=== PATIENT | female | born 1970 | race Caucasian/White ===

== ENCOUNTER → 2022-04-12 12:25 | Outpatient (BNVA) | payer OTHER, SELFPAY | PROVIDERS: PCP Internal Medicine; Visit Provider Internal Medicine | DX: S00.93XA Contusion of unspecified part of head, initial encounter (principal); S16.1XXA Strain of muscle, fascia and tendon at neck level, initial encounter; Y04.2XXA Assault by strike against or bumped into by another person, initial encounter | CPT/HCPCS: 70450; 72040; 99204 ==

== ENCOUNTER → 2022-04-15 10:05 | Outpatient (BNVA) | payer OTHER, SELFPAY | PROVIDERS: PCP Internal Medicine; Visit Provider Internal Medicine | DX: S06.0X0A Concussion without loss of consciousness, initial encounter (principal); S16.1XXA Strain of muscle, fascia and tendon at neck level, initial encounter; Y04.2XXA Assault by strike against or bumped into by another person, initial encounter | CPT/HCPCS: 99214 ==

== ENCOUNTER → 2022-04-30 09:39 | Outpatient (BNVA) | payer OTHER, SELFPAY | PROVIDERS: PCP Internal Medicine; Visit Provider Internal Medicine | DX: S06.9X0A Unspecified intracranial injury without loss of consciousness, initial encounter (principal); Y04.2XXA Assault by strike against or bumped into by another person, initial encounter; F06.70 Mild neurocognitive disorder due to known physiological condition without behavioral disturbance; F51.5 Nightmare disorder; R51.9 Headache, unspecified | CPT/HCPCS: 99213 ==

== ENCOUNTER → 2022-05-13 15:12 | Outpatient (BNVA) | payer OTHER, SELFPAY | PROVIDERS: PCP Internal Medicine; Visit Provider Internal Medicine | DX: S06.0X0D Concussion without loss of consciousness, subsequent encounter (principal); S16.1XXD Strain of muscle, fascia and tendon at neck level, subsequent encounter; Y04.2XXD Assault by strike against or bumped into by another person, subsequent encounter; R51.9 Headache, unspecified | CPT/HCPCS: 99214 ==

== ENCOUNTER → 2022-05-31 14:16 | Outpatient (BNVA) | payer OTHER, SELFPAY | PROVIDERS: PCP Internal Medicine; Visit Provider Internal Medicine | DX: S00.93XD Contusion of unspecified part of head, subsequent encounter (principal); S16.1XXD Strain of muscle, fascia and tendon at neck level, subsequent encounter; Y04.2XXD Assault by strike against or bumped into by another person, subsequent encounter | CPT/HCPCS: 99213 ==

== ENCOUNTER 2022-06-10 18:28 | Outpatient (REF) | payer OTHER, SELFPAY ==
--- NOTE | ~2022-06-10 | MR_ITS ---
EXAMINATION: MR BRAIN WITHOUT CONTRAST CLINICAL INFORMATION: Persistent headache, memory loss, TBI COMPARISON: None TECHNIQUE: Multiplanar multisequence MR imaging of the brain was obtained without intravenous contrast. FINDINGS: There is no acute infarct on diffusion-weighted imaging. There is no intracranial hemorrhage on iron-sensitive imaging. Bilateral globus pallidus mineralization. No extra-axial collection or mass effect/herniation. Normal parenchymal signal characteristics. No hydrocephalus. The ventricles are normal in morphology and size. The major flow voids at the skull base are preserved. The midline structures are normal. The cerebellar tonsils are normally positioned. The craniocervical junction is normal. Marrow signal is within normal limits. The visualized soft tissues are without significant abnormality. No signal abnormality within the paranasal sinuses or within the mastoid air cells. MR/MR head/brain wo con IMPRESSION: Unremarkable noncontrast MRI of the brain.
== END 2022-06-10 18:29 | disposition home or self-care (01) ==
LOC: HO.MRI 18:28
PROVIDERS: Visit Provider Physician Assistant
DX: R51.9 Headache, unspecified (principal); R41.3 Other amnesia
CPT/HCPCS: 70551

== ENCOUNTER → 2022-06-14 14:26 | Outpatient (BNVA) | payer OTHER, SELFPAY | PROVIDERS: PCP Internal Medicine; Visit Provider Internal Medicine | DX: S00.93XD Contusion of unspecified part of head, subsequent encounter (principal); Y04.2XXD Assault by strike against or bumped into by another person, subsequent encounter | CPT/HCPCS: 99213 ==

== ENCOUNTER 2024-04-10 07:19 | Day surgery (SDC) | payer BC, SELFPAY ==
[2024-04-10] VITALS (10 sets, daily range): BP systolic 97–142; BP diastolic 46–116; PULSE 59–82; RESP 14–20; TEMP 36.3–37.2; O2SAT 93–98; BMI 28.5
--- NOTE | ~2024-04-10 | CT_ITS ---
EXAMINATION: CT ABDOMEN AND PELVIS WITHOUT CONTRAST CLINICAL INFORMATION: Right flank pain. COMPARISON: None available. TECHNIQUE: Multidetector volumetric imaging was performed from the superior aspect of the liver through the pubic symphysis. Sagittal and coronal reformatted images were obtained on the technologist's workstation. This CT examination was performed using dose optimization techniques as appropriate, variously including the following: *Automated exposure control *Adjustment of mA and/or kV according to patient size (this includes techniques or standardized protocols for targeted exams where dose is matched to indication/reason for exam; i.e. extremities or head) *Use of iterative reconstruction technique. DLP: 536 mGy centimeter. FINDINGS: Inadequate evaluation of the intra-abdominal organs and vascular structures due to to lack of IV contrast. LUNG BASES: There are a few 2 mm noncalcified pulmonary nodule in the periphery of the right lower lung lobe. LIVER, GALLBLADDER, AND BILIARY TREE: Liver measures 17 cm.. No intrahepatic biliary ductal dilatation. There is a focal 2 cm low density in the gallbladder fossa. Status post cholecystectomy. Common bile duct measures 4 mm. PANCREAS: Punctate calcification in the head of the pancreas just anterior to the common bile duct. No main pancreatic ductal dilatation. No peripancreatic fluid collection. SPLEEN: 9 cm. ADRENAL GLANDS: No nodular lesions. KIDNEYS AND URETERS: Right kidney: There is a 3 mm obstructing calculus in the proximal right ureter.. There is mild to moderate dilatation of the pelvicalyceal system. Left kidney: No hydronephrosis. No nephrolithiasis. BLADDER: Fluid-filled nearly collapsed. GASTROINTESTINAL TRACT: Sutures along the lateral gastric wall. There is a hiatal hernia, small to moderate volume. Appendix is normal. Scattered diverticula in the sigmoid colon. Stool within nondilated large intestine. No intestinal obstruction pattern. No ascites. No pneumatosis intestinalis. No pneumoperitoneum. No fluid collections, peritoneal cavity. ABDOMINAL WALL: There are 2 lobulated small to moderate sized fat-containing umbilical and periumbilical hernias. LYMPH NODES: Nonspecific prominent mesenteric and retroperitoneum. VASCULAR: The calcified plaques distal abdominal aorta. No aneurysm in the abdominal aorta. PELVIC VISCERA: Inadequate evaluation. No gross masses. OSSEOUS STRUCTURES: Multilevel thoracolumbar spondylosis resulting in grade 1 retrolisthesis L4-5 and grade 1 anterolisthesis L5-S1. Castellvi type III sacralization. CT/CT abdomen pelvis wo IV con IMPRESSION: 3 mm obstructing calculus proximal right ureter resulting in [id number] right hydronephrosis. Fleischner guidelines were followed. Electronically signed by: Gage Nava MD 04/10/2024 10:00 AM [facility]
--- NOTE | ~2024-04-10 | FL_ITS ---
EXAMINATION: FLUOROSCOPY GUIDANCE FOR NEEDLE PLACEMENT CLINICAL INFORMATION: CYSTOSCOPY STENT RIGHT . Right UPJ stone. COMPARISON: CT abdomen and pelvis 04/10/2024. TECHNIQUE: Fluoroscopy guidance was provided to referring physician during cystoscopy. FINDINGS/ FL/FL guidance in OR IMPRESSION: There are 2 digital images obtained in the OR both revealing right internal ureteral stent with its proximal end in the kidney pelvis and distal end in the bladder. FLUOROSCOPY TIME: 19.9 seconds DOSE AREA PRODUCT: 4.35 uGy-m2 (microgray-meter squared) Electronically signed by: Augusto Ruff MD 04/11/2024 07:29 AM EST
--- NOTE | 2024-04-10 07:57 | ED.ABDPAIN ---
HPI - Abdominal Pain General Chief Complaint: Abdominal Pain Stated Complaint: R lower abd pain, vomiting Time Seen by Provider: 04/10/24 07:55 Source: patient Mode of arrival: ambulatory Limitations: no limitations History of Present Illness HPI narrative: This is a 54 years old the patient presented to the emergency department complaining of right flank pain radiated to the groin pain he has been going on since Tuesday. She arrived today in triage crying in distress. Denies any nausea vomiting denies any comorbidity MD elicited complaint: flank pain Pertinent past history: none Onset (ago): day(s) (2) Pain Consistency: constant Location: other (rt flank) Severity: severe Quality: aching Radiation: RLQ Migration to: suprapubic Exacerbating factors: nothing Relieving factors: nothing Associated symptoms: denies other symptoms Related Data Patient : No Home Medications ?Medication ?Instructions ?Recorded ?Confirmed clindamycin HCl 300 mg capsule 300 mg PO TID 04/10/24 propranolol 20 mg tablet 20 mg PO DAILY 04/10/24 semaglutide (weight loss) 1 mg/0.5 1 mg subcut Q4W 04/10/24 mL subcutaneous pen injector (Wegovy) Previous Rx's ?Medication ?Instructions ?Recorded trazodone 50 mg tablet 100 mg (2 x 50 mg) PO BEDTIME #60 05/13/22 tabs Allergies Allergy/AdvReac Type Severity Reaction Status Date / Time codeine Allergy Unknown Unknown Verified 04/10/24 07:50 penicillin V Allergy Unknown Unknown Verified 04/10/24 07:50 Penicillins [PENICILLINS] Allergy Unknown HIVES Verified 04/10/24 07:50 HYDROCET Allergy Unknown HIVES Uncoded 10/25/19 16:11 Review of Systems Constitutional: Reports no additional constitutional complaints Respiratory: Reports no additional respiratory complaints Genitourinary: Reports as per HPI PMFSH Past Medical History PMFSH Narrative: She denies any medical problems Surgical History History of right knee surgery History of knee replacement procedure of right knee History of knee surgery History of section Hx of cholecystectomy Family History Family History Father Unknown family medical history Mother No problems noted. Son No problems noted. Daughter No problems noted. Social History Social History Smoked in Last 30 Days: No Use of substances other than those prescribed or required for medical reasons: No Advance Directives: Yes Advance Directives Information Provided: Yes Advance Directives on File: No Patient : No Physical Exam ED Vital Signs: Vital Signs - 24 hr 04/10/24 07:48 04/10/24 10:06 04/10/24 11:52 Temperature 97.8 F Pulse Rate 82 Respiratory Rate 20 16 15 Blood Pressure 142/116 H Pulse Oximetry 97 Oxygen Delivery Method Room Air 04/10/24 12:34 Temperature 97.6 F Pulse Rate 76 Respiratory Rate 16 Blood Pressure 104/46 L Pulse Oximetry 96 Oxygen Delivery Method Room Air BMI result Body Mass Index 28.5 Mild distress crying in pain Const General: well developed and alert Nutritional Appearance: average body habitus Orientation/consciousness: patient oriented x3 Limitations: no limitations HENMT Head: Yes normal to inspection Ears: hearing grossly normal bilaterally Mouth: Normal oral and palatal mucosa present Throat: Yes posterior oropharynx normal Neck Neck: Yes normal visual inspection Chest Chest palpation & inspection: normal inspection of the chest Resp Effort & Inspection: normal respiratory effort Auscultation: clear to auscultation bilaterally Cardio Jugular venous distension: no JVD Rate: regular rate Rhythm: regular rhythm GI Inspection: Yes normal to inspection Palpation (GI): Soft to palpation Auscultation: normal bowel sounds Skin General skin exam: no rashes or lesions noted and elasticity normal Trauma: no lacerations or abrasions Wounds: no wounds Neuro General: patient oriented x3 Cranial nerves: Yes CN's II-XII intact bilaterally Motor exam (neuro): 5/5 motor strength present throughout Course Reevaluation(s) Reevaluation #1: Seen by Dr. Truong in the emergency department patient with have sten in OR Time: 13:18 Medical Decision Making Medical Decision Making [facility] Narrative: Patient presented to the ED complaining of right flank pain radiated to the right groin we will obtain labs UA imaging administer analgesia antiemetic Differential Diagnosis Differential Diagnoses: The differential diagnosis associated with the presentation includes Kidney stone/pyelonephritis/urinary tract infection Admission/Observation Consideration of admission/observation: Escalation of care including admission/observation considered Consult Healthcare Provider Management of the patient was discussed with: Cutting Machine Fixer Acosta Lab Data MDM Lab Attestation statement: I reviewed the patient's lab results. 04/10/24 09:52 04/10/24 09:52 Labs: Lab Results 04/10/24 Range/Units 09:52 WBC 6.9 (4.8-10.8) X10*3/uL RBC 4.07 L (4.20-5.50) X10*6/uL Hgb 12.8 (12.0-16.0) g/dl Hct 38.0 (37.0-47.0) % MCV 93.4 (80.0-98.0) fL MCH 31.4 (27.0-33.0) pg MCHC 33.7 (31.0-35.0) g/dl RDW 13.6 (11.0-16.0) % Plt Count 234 (160-400) X10*3/uL MPV 9.4 (9.4-12.3) fL Immature Gran % (Auto) 0.3 (0.0-0.4) % Neut % (Auto) 75.6 H (45-73) % Lymph % (Auto) 14.5 L (20-40) % [place] % (Auto) 8.6 (2-11) % Eos % (Auto) 0.3 (0-4) % Baso % (Auto) 0.7 (0-2) % Lymph # (Auto) 1.0 L (1.2-4.9) X10*3/uL [place] # (Auto) 0.6 (0.1-1.2) X10*3/uL Eos # (Auto) 0.0 (0.0-0.4) X10*3/uL Baso # (Auto) 0.1 (0.0-0.2) X10*3/uL Abs Immat Gran (auto) 0.02 (0.00-0.03) X10*3/uL Absolute Neuts (auto) 5.2 (2.0-8.3) x10*3/uL Absolute Nucleated RBC 0.000 (0.0-0.012) X10*3/uL Nucleated RBC % (auto) 0.0 (0.0-0.2) /100WBC Sodium 145 (135-145) mmol/L Potassium 3.7 (3.3-5.1) mmol/L Chloride 110 H (96-108) mmol/L Carbon Dioxide 24 (22-29) mmol/L Anion Gap 15 (12-20) BUN 11 (9-16) mg/dL Creatinine 0.72 (0.5-1.4) mg/dL Estim Creat Clear Calc 87.6 Estimated GFR > 60 Random Glucose 81 (60-115) mg/dL Calcium 8.9 (8.4-10.2) mg/dL Total Bilirubin 1.1 H (0.0-1.0) mg/dL AST 37 H (5-31) U/L ALT 23 (0-31) U/L Alkaline Phosphatase 77 (39-117) U/L Total Protein 6.7 (6.5-8.0) g/dL Albumin 3.6 (3.5-5.0) g/dL Urine Color [place] A Urine Appearance Turbid Urine pH 5.0 (5.0-9.0) Ur Specific [place] >= 1.030 H (1.005-1.025) Urine Protein 100 (2+) H (Neg-Trace) mg/dL Urine Glucose (UA) Negative (Negative) mg/dL Urine Ketones Trace (Negative) mg/dL Urine Blood Large (3+) H (Negative) Urine Nitrite Positive H (Negative) Ur Leukocyte Esterase Small (1+) H (Negative) Urine RBC 6-10 H (0-2) /HPF Urine WBC 11-20 H (0-5) /HPF Ur Squamous Epith Cells >20 (0-2) /HPF Calcium Oxalate Crystal Present Urine Bacteria 4+ (None Seen) Hyaline Casts 11-20 (0-2) /LPF Independent Interpretation I performed an independent interpretation of an: CT Scan Radiology Impression Discussion of test interpretation with radiology: I have reviewed the radiologist's reading. Radiologist Impression: ABDOMINAL WALL: There are 2 lobulated small to moderate sized fat-containing umbilical and periumbilical hernias. LYMPH NODES: Nonspecific prominent mesenteric and retroperitoneum. VASCULAR: The calcified plaques distal abdominal aorta. No aneurysm in the abdominal aorta. PELVIC VISCERA: Inadequate evaluation. No gross masses. OSSEOUS STRUCTURES: Multilevel thoracolumbar spondylosis resulting in grade 1 retrolisthesis L4-5 and grade 1 anterolisthesis L5-S1. Castellvi type III sacralization. CT/CT abdomen pelvis wo IV con IMPRESSION: 3 mm obstructing calculus proximal right ureter resulting in [id number] right hydronephrosis. Fleischner guidelines were followed. Electronically signed by: Gage Nava MD 04/10/2024 10:00 AM EST Independent Historian Clinical information obtained from an independent historian. History obtained from or confirmed by: Other (daughter) Medications Administered Generic Name Dose Route Start Last Admin Trade Name Freq PRN Reason Stop Dose Admin Lactated Ringer's 1,000 mls @ 150 mls/hr 04/10/24 13:00 04/10/24 13:11 Lr IVCONT 150 mls/hr .Q6H40M MARIO Administration Discontinued Medications Generic Name Dose Route Start Last Admin Trade Name Freq PRN Reason Stop Dose Admin Hydromorphone HCl 0.5 mg 04/10/24 11:22 04/10/24 11:52 Hydromorphone Hcl 0.5 Mg/0.5 Ml Syringe IVPUSH 04/10/24 11:23 0.5 mg ONCE ONE Administration Protocol Sodium Chloride 1,000 mls @ 999 mls/hr 04/10/24 08:00 04/10/24 09:26 Ns IVCONT 04/10/24 09:00 Infused .Q1H1M MARIO Infusion Sodium Chloride 1,000 mls @ 999 mls/hr 04/10/24 10:15 04/10/24 12:31 Ns IVCONT 04/10/24 11:15 Infused .Q1H1M MARIO Infusion Ketorolac Tromethamine 15 mg 04/10/24 07:55 04/10/24 08:11 Ketorolac Tromethamine 15 Mg/Ml Vial IVPUSH 04/10/24 07:56 15 mg ONCE ONE Administration Morphine Sulfate 4 mg 04/10/24 07:55 04/10/24 08:11 Morphine Sulfate 4 Mg/Ml Cartridge IVPUSH 04/10/24 07:56 4 mg ONCE ONE Administration Protocol Morphine Sulfate 4 mg 04/10/24 09:56 04/10/24 10:06 Morphine Sulfate 4 Mg/Ml Cartridge IVPUSH 04/10/24 09:57 4 mg ONCE ONE Administration Protocol Ondansetron HCl 4 mg 04/10/24 07:55 04/10/24 08:11 Ondansetron Hcl 4 Mg/2 Ml Vial IVPUSH 04/10/24 07:56 4 mg ONCE ONE Administration Discharge Plan Discharge Clinical Impression: Renal colic on right side Patient Disposition: Admitted As Inpatient Print Language: German
[2024-04-10] MEDS: ondansetron HCL 4 MG/2 ML VIAL IVPUSH (08:11)
[2024-04-10] MEDS: Morphine Sulfate 4 MG/ML CARTRIDGE IVPUSH ×2 (08:11→10:06)
[2024-04-10] MEDS: Ketorolac Tromethamine 15 MG/ML VIAL IVPUSH ×2 (08:11→18:54)
[2024-04-10] MEDS: 0.9 % Sodium Chloride 1,000 ML 999 ML IVCONT ×2 (08:11→10:26)
--- OUTSIDE RECORDS SUMMARY | 2024-04-10 08:41 | XMS_ITS | Clinical Summary ---
[facility] Address [address] [place] [address] Care Team Providers Care Reclamation Supervisor Name Role Phone Ericka Can MD Primary Care Provider Surgical History Surgery Date Site/Laterality Comments CHOLECYSTECTOMY PROCEDURE: HISTORICAL CHOLECYSTECTOMY BARIATRIC SURGERY 10/05/2016 PROCEDURE: ND LAPS GSTRC RSTRICTIV PX LONGITUDINAL GASTRECTOMY; COMMENT: Sleeve Gastrectomy OTHER SURGICAL HISTORY 02/22/2015 Right PROCEDURE: ND ARTHRS KNE SURG W/MENISCECTOMY MED/LAT W/SHVG TOTAL KNEE ARTHROPLASTY 08/25/2015 Right PROCEDURE: HISTORICAL TOTAL KNEE REPLACE; COMMENT: [place] SECTION PROCEDURE: HISTORICAL ; COMMENT: x 2 Medical History Medical History Date Comments Anxiety DX:Anxiety History of bariatric surgery 05/20/2015 DX: History of bariatric surgery; COMMENT: 2016 Sleeve Gastrectomy History of DVT (deep vein thrombosis) 02/19/2015 DX:History of DVT (deep vein thrombosis); COMMENT: 2015 R LE s/p menisectomy Social History Tobacco Use Types Packs/Day Years Used Date Smoking Tobacco: Never Smokeless Tobacco: Never Alcohol Use Standard Drinks/Week Comments Yes 0 (1 standard drink = 0.6 oz pur e alcohol) Comments Unknown Sex and Gender Information Value Date Recorded Sex Assigned at Not on file Legal Sex Female 7:34 AM EST Gender Identity Not on file Sexual Orientation Not on file Obstetrics History Plan of Treatment Health Maintenance Due Date Last Done Comments Breast Cancer Screening 1969 Hepatitis B Vaccines (1 of 3 - 19+ 3-dose series) 01/30/1988 Cervical Cancer Screening: P ap Smear 1990 Pneumococcal Vaccine: 50+ Ye ars (1 of 1 - PCV) 2019 Zoster Vaccines (1 of 2) 2019 DTaP,Tdap,and Td Vaccines (2 - Td or Tdap) 07/08/2020 07/08/2010 COVID-19 Vaccine ( - 2023-2 5 season) 2023 Influenza Vaccine (#1) 2023 HIB Vaccines Aged Out No longer eligi ble based on patient's age to complete this topic HPV Vaccines Aged Out No longer eligi ble based on patient's age to complete this topic Hepatitis A Vaccines Aged Out No long er eligible based on patient's age to complete this topic IPV Vaccines Aged Out No longer eligi ble based on patient's age to complete this topic MMR Vaccines Aged Out No longer eligi ble based on patient's age to complete this topic Meningococcal ACWY Vaccine Aged Out N o longer eligible based on patient's age to complete this topic Meningococcal B Vacine Aged Out No lo nger eligible based on patient's age to complete this topic Pneumococcal Vaccine: Pediat rics (0 to 5 Years) and At-Risk Patients (6 to 64 Years) Aged Out No longer eligi ble based on patient's age to complete this topic RSV Immunization Patients Un corinne 20 months Aged Out No longer eligible b ased on patient's age to complete this topic Varicella Vaccines Aged Out No longer eligible based on patient's age to complete this topic Care Teams Reclamation Supervisor Relationship Specialty Start Date End Date Ericka Can MD [address] [place] [address] PCP - General 09/27/16
--- OUTSIDE RECORDS SUMMARY | 2024-04-10 08:41 | XMS_ITS | Patient Health Record ---
Author Organization [facility] Address [address] [place] [phone] Support Name Relationship Address Phone JOSE R Carter Guarantor Unknown Unavailable REASON FOR REFERRAL No Information PLAN OF TREATMENT No Information Insurance Providers Payer Name Payer Address Payer Phone Subscriber Number Group Number Insured Name Patient Relationship to Insured Coverage Start Date Coverage End Date ISABEL Palacios [id number] [place], [place] [id number] JOSE R Carter Self - patient is the insured
[2024-04-10 09:59] LABS: MANUAL DIFF FLAG NO
[2024-04-10 10:02] LABS: Basophils Absolute Auto 0.1 X10*3/uL (0.0-0.2); Basophils Percent Auto 0.7 % (0-2); Eosinophils Percent Auto 0.3 % (0-4); Hemoglobin 12.8 g/dl (12.0-16.0); Imm Gran Abs Auto 0.02 X10*3/uL (0.00-0.03); Imm Gran Pct Auto 0.3 % (0.0-0.4); Lymphocytes Percent Auto 14.5 % (20-40); Mean Corpuscular HGB Conc 33.7 g/dl (31.0-35.0); Mean Corpuscular Hemoglobin 31.4 pg (27.0-33.0); Mean Corpuscular Volume 93.4 fL (80.0-98.0); Mean Platelet Volume 9.4 fL (9.4-12.3); Monocytes Absolute Auto 0.6 X10*3/uL (0.1-1.2); Monocytes Percent Auto 8.6 % (2-11); Neutrophils Absolute Auto 5.2 x10*3/uL (2.0-8.3); Neutrophils Percent Auto 75.6 % (45-73); Platelet Count 234 X10*3/uL (160-400); Red Blood Count 4.07 X10*6/uL (4.20-5.50); Red Cell Distribution Width 13.6 % (11.0-16.0); White Blood Count 6.9 X10*3/uL (4.8-10.8)
[2024-04-10 10:05] LABS: Appearance Urine Turbid; Color Urine Orange; Glucose Urine UA Negative (Negative); Leukocyte Esterase Urine Small (1+) (Negative); Nitrite Urine Positive (Negative); Specific Gravity - Urine >= 1.030 (1.005-1.025); UMIC TRIGGER UACC YES; Urine Blood Large (3+) (Negative); Urine Ketones Trace mg/dL (Negative); Urine Protein 100 (2+) mg/dL (Neg-Trace)
[2024-04-10 10:15] LABS: Alanine Aminotransferase 23 U/L (0-31); Albumin Level 3.6 g/dL (3.5-5.0); Alkaline Phosphatase 77 U/L (39-117); Anion Gap 15 (12-20); Aspartate Amino Transferase 37 U/L (5-31); Bilirubin Total 1.1 mg/dL (0.0-1.0); Blood Urea Nitrogen 11 mg/dL (9-16); Calcium 8.9 mg/dL (8.4-10.2); Carbon Dioxide 24 mmol/L (22-29); Chloride 110 mmol/L (96-108); Creatinine Clr Calc Pharmacy 87.6; Estimated Glomerular Filt Rate > 60; Glucose Random 81 mg/dL (60-115); Potassium 3.7 mmol/L (3.3-5.1); Sodium 145 mmol/L (135-145); Total Protein 6.7 g/dL (6.5-8.0)
[2024-04-10 10:16] LABS: Bacteria Urine 4+ (None Seen); Calcium Oxalate Crystals Urine Present; Squamous Epithelial Cell Urine >20 /HPF (0-2); UACC Culture Trigger YES
[2024-04-10] MEDS: HYDROmorphone HCl 0.5 MG/0.5 ML SYRINGE IVPUSH (11:52)
--- NOTE | 2024-04-10 12:32 | PM.UROCN ---
History of Present Illness Consult details Consult date: 04/10/24 Narrative: CC: Right proximal ureteric stone 54-year-old female Presents to emergency department complaining right flank pain Radiating to groin ongoing since Tuesday Arrived in triage with painful distress pain to 10/17 with no relieving No associated nausea and vomiting No prior history of kidney stone Lab work shows creatinine 0.72, calcium 8.9, WBC 6.9 Imaging - 3 mm obstructing calculus in the proximal right ureter. There is mild to moderate dilatation of the pelvicalyceal system. On review of imaging stone closer to 5 mm in maximal diameter Plan cystoscopy, right retrograde, right stent placement Review of Systems Constitutional: Constitutional: Reports as per HPI and Reports no additional constitutional complaints Cardiovascular: Cardiovascular: Reports as per HPI and Reports no additional cardiovascular complaints Respiratory: Respiratory: Reports as per HPI and Reports no additional respiratory complaints Gastrointestinal: Gastrointestinal: Reports as per HPI and Reports no additional gastrointestinal complaints Genitourinary: Genitourinary: Reports as per HPI Musculoskeletal: Musculoskeletal: Reports no additional musculoskeletal complaints and Reports as per HPI Neurologic: Reports system reviewed and no additional complaints, except as documented and Reports as per HPI PMFSH Family History Family History Father Unknown family medical history Mother No problems noted. Son No problems noted. Daughter No problems noted. Surgical History Surgical History History of right knee surgery History of knee replacement procedure of right knee History of knee surgery History of section Hx of cholecystectomy Social History Social History Smoked in Last 30 Days: No Use of substances other than those prescribed or required for medical reasons: No Advance Directives: Yes Advance Directives Information Provided: Yes Advance Directives on File: No Patient : No Meds Allergies Allergy/AdvReac Type Severity Reaction Status Date / Time codeine Allergy Unknown Unknown Verified 04/10/24 07:50 penicillin V Allergy Unknown Unknown Verified 04/10/24 07:50 Penicillins [PENICILLINS] Allergy Unknown HIVES Verified 04/10/24 07:50 HYDROCET Allergy Unknown HIVES Uncoded 10/25/19 16:11 Physical Exam Vital Signs: Vital Signs: Last Vital Signs Temp 97.8 F 04/10/24 07:48 Pulse 82 04/10/24 07:48 Resp 15 04/10/24 11:52 BP 142/116 H 04/10/24 07:48 Pulse Ox 97 04/10/24 07:48 O2 Del Method Room Air 04/10/24 07:48 BMI result Body Mass Index 28.5 Const: General: cooperative, healthy appearing, comfortable and no acute distress Orientation/consciousness: patient oriented x3 HEENT: Face and sinus: Yes normal facial exam Mouth: moist mucous membranes Neck: Neck: Yes normal visual inspection, Yes full ROM and Yes trachea midline Chest: Chest palpation & inspection: normal inspection of the chest Resp: Effort & Inspection: normal respiratory effort, able to speak in complete sentences and no respiratory distress GI: Inspection: Yes normal to inspection Back/Spine/Pelvis: Cervical Spine: normal cervical lordosis Thoracic/Lumbar Spine: thoracic and lumbar spine normal to inspection Skin: General skin exam: no rashes or lesions noted Neuro: General: patient oriented x3, tone normal and moves all extremities Extrem: General: Yes normal to inspection and Yes capillary refill normal Results Labs 04/10/24 09:52 04/10/24 09:52 Labs: Abnormal lab results 04/10/24 Range/Units 09:52 RBC 4.07 L (4.20-5.50) X10*6/uL Neut % (Auto) 75.6 H (45-73) % Lymph % (Auto) 14.5 L (20-40) % Lymph # (Auto) 1.0 L (1.2-4.9) X10*3/uL Chloride 110 H (96-108) mmol/L Total Bilirubin 1.1 H (0.0-1.0) mg/dL AST 37 H (5-31) U/L Urine Color [place] A Ur Specific [place] >= 1.030 H (1.005-1.025) Urine Protein 100 (2+) H (Neg-Trace) mg/dL Urine Blood Large (3+) H (Negative) Urine Nitrite Positive H (Negative) Ur Leukocyte Esterase Small (1+) H (Negative) Urine RBC 6-10 H (0-2) /HPF Urine WBC 11-20 H (0-5) /HPF Short CBC 04/10/24 Range/Units 09:52 WBC 6.9 (4.8-10.8) X10*3/uL Hgb 12.8 (12.0-16.0) g/dl Hct 38.0 (37.0-47.0) % Plt Count 234 (160-400) X10*3/uL BMP 04/10/24 09:52 Sodium 145 Potassium 3.7 Chloride 110 H Carbon Dioxide 24 BUN 11 Creatinine 0.72 Calcium 8.9 Liver Function 04/10/24 Range/Units 09:52 Total Bilirubin 1.1 H (0.0-1.0) mg/dL AST 37 H (5-31) U/L ALT 23 (0-31) U/L Alkaline Phosphatase 77 (39-117) U/L Albumin 3.6 (3.5-5.0) g/dL Urine 04/10/24 Range/Units 09:52 Urine Color [place] A Urine Appearance Turbid Urine pH 5.0 (5.0-9.0) Ur Specific [place] >= 1.030 H (1.005-1.025) Urine Protein 100 (2+) H (Neg-Trace) mg/dL Urine Glucose (UA) Negative (Negative) mg/dL All other labs normal. Assessment and Plan (1) Ureteric calculus: Status: Acute Plan Risks, benefits and alternatives to therapy were discussed. These include but are not limited to infection, bleeding, damage to local organs and tissues, need for further interventions. Anesthetic risks regarding cardiac arrhythmia, blood clots, and potential mortality were discussed. The patient understands the typical recovery time and the outpatient nature of the procedure. After consideration of these risks the patient gives full informed consent and they wish to move ahead with the procedure. - cystoscopy, right retrograde, right stent placement Procedures Date of Service Date of Service: 04/10/24
[2024-04-10] MEDS: Lactated Ringers 1,000 ML 150 ML IVCONT (13:11)
--- NOTE | 2024-04-10 13:46 | PHA.MEDREC ---
Addendum entered by Tori Conde RP 04/10/24 13:50: Reviewed by [facility] Original Note: Pharmacy Consult ? Medication Reconciliation Pharmacy has completed the medication reconciliation. Spoke with patient to confirm medications. She does Wegovy on Saturdays, had it last Tuesday. Patient reports she is no longer taking the antibiotic, finished it a few weeks ago (for cellulitis). She is NOT taking propranolol or trazodone.
--- NOTE | 2024-04-10 16:04 | PC.NURSE ---
Report given to CORIN RN. Plan for patient to be add on later today 6-7p possibly
--- NOTE | 2024-04-10 17:29 | P.OP_ITS ---
Operative Note Operative Note Date of Service: 04/10/24 Narrative: PreOperative Diagnosis:?? Right obstructing ureteral stone, right hydronephrosis Post Operative Diagnosis:?? Right obstructing ureteral stone, right hydronephrosis Procedure: - Cystoscopy, right retrograde, right ureteroscopy laser lithotripsy stent insertion, 6 Bel[place]ian by 24 cm Surgeon:?Dr Jennifer Hanna Anesthesia:? General Procedure: After informed consent was verified the patient was brought to the operating placed on the OR table in supine position.? General Anesthesia was administered per protocol.? The patient was placed in lithotomy position, prepped and draped in the usual sterile fashion.? Safety pause time-out and side of surgery confirmed.? Antibiotics confirmed. 2% lidocaine jelly 10 mL was passed transurethrally. A 22 [place]ian cystoscope was inserted transurethrally, bladder was visualized.? Both ureteric orifices were in normal position. An open-ended ureteral catheter was passed into the right ureteral orifice and a retrograde examination was performed. There was dilatation of the proximal ureter and renal pelvis and calyces. A guidewire was passed through the ureteral catheter into the kidney. The balloon dilator size 12 fr x 4 cm was passed over the guide-wire the balloon was inflated to 10 mmHg and the int ramural ureter was dilated for 30 seconds. The balloon was deflated and removed. After removing the balloon dilator a 2nd guidewire was then passed into the kidney to use as a safety. The cystoscope was removed, leaving both guidewires in place. One guidewire was used as the safety and was attached to the draping. The semi rigid ureteroscope was passed over one of the guidewires to the level of the stone in the ureter. One guidewire was then removed. Laser lithotripsy of the stone was done using the 365 fiber with a pulsating setting, 0.6 joules by 6 mcfarlane. There was good fragmentation of the stone. The 0 degree basket was passed through the ureteroscope, stone fragment(s) removed and sent for analysis. The ureteroscope was removed. The cystoscope was passed over the s afety guidewire. A? 6 [place] by 24 cm stent was placed into the ureter and renal pelvis under a combination of fluoroscopy and direct visualization. The bladder was emptied.? The rigid cystoscope was removed. Belladonna suppository per rectum.? The patient tolerated the procedure well and was brought to the recovery room in stable condition. Complications: None Drains: Ureteral stent as dictated above
--- NOTE | 2024-04-10 17:29 | MHC.SHP ---
Pre-Procedural Eval Section A - 24 Hr Update-Section A only Date of Service: 04/10/24 The patient is an INPATIENT: Yes The patient has been examined within 24 hours of the surgical procedure. The History & Physical has been completed within 30 days and I have reviewed it.: Yes Section B - Complete if H&P > 30 days Chief Complaint: R lower abd pain, vomiting Allergies: Allergies Allergy/AdvReac Type Severity Reaction Status Date / Time penicillin V Allergy Severe Shortness Verified 04/10/24 16:56 of Breath codeine Allergy Intermediate Hives Verified 04/10/24 16:56 Penicillins [PENICILLINS] Allergy Intermediate HIVES Verified 04/10/24 16:56 HYDROCET Allergy Intermediate HIVES Uncoded 04/10/24 16:56 Plan Diagnosis/Plan: Unchanged I have reviewed the history and physical and performed a pertinent physical examination on my patient. No changes have occurred unless specified. Cystoscopy right ureteral stent possible ureteroscopy laser stone. The patient is on Wegovy. This is an urgent procedure due to obstruction of the right ureteral system. Risks discussed included but not limited to, possible need to repeat procedure if stone is not completely fragmented, Irritative voiding symptoms, bladder spasms, urgency, blood in urine. Time Spent With Patient Time: Total time managing care of this patient today ____ minutes.
--- NOTE | 2024-04-10 17:37 | PC.NURSE ---
Patient in preop. Alexei, at bedside. All removed jewelry given to Alexei by patient, as well as patients phone.
--- NOTE | 2024-04-10 18:46 | P.DS_ITS ---
DS: Providers Provider Date of Service: 04/10/24 Date of admission: 04/10/24 Date of discharge: 04/10/24 Primary care physician: Jolanta Polo MD Admitting clinician: Alexander Truong Discharging clinician: Jennifer Hanna DS: Diagnosis Discharge Diagnosis (1) Ureteric calculus: Status: Acute DS: Summary Hospital Course Hospital Course: Monique came to ED with complaints of acute right flank pain. CTAP noted a right ureteral obstructing stone. She had procedure, ureteroscopy laser stone/ureteral stent. Status at Discharge Cognitive/behavioral status at discharge: Stable Functional status at discharge: independent ambulation Overall status at discharge: patient is back to baseline Time Attestation Total time managing care of this patient today: 36 mintues. Discharge Coordination Time (in mins): 36 minutes Quality: Safe Use of Opioids Does Pt have an Active Cancer Diagnosis on the Problem List?: No Quality: Stroke Does the patient have a stroke diagnosis?: No Physical Exam Vital Signs: Vital Signs: Last Vital Signs Temp 99.0 F 04/10/24 17:08 Pulse 71 04/10/24 17:08 Resp 16 04/10/24 17:08 BP 115/92 H 04/10/24 17:08 Pulse Ox 97 04/10/24 17:08 O2 Del Method Room Air 04/10/24 17:08 BMI result Body Mass Index 28.5 DS: Data Data Completed and Pending Pending studies at discharge: Pending at discharge 04/10/24 18:35 Surgical [PTH] Routine Labs on day of discharge: Laboratory Results - last 24 hr 04/10/24 09:52 WBC 6.9 RBC 4.07 L Hgb 12.8 Hct 38.0 MCV 93.4 MCH 31.4 MCHC 33.7 RDW 13.6 Plt Count 234 MPV 9.4 Immature Gran % (Auto) 0.3 Neut % (Auto) 75.6 H Lymph % (Auto) 14.5 L [place] % (Auto) 8.6 Eos % (Auto) 0.3 Baso % (Auto) 0.7 Lymph # (Auto) 1.0 L [place] # (Auto) 0.6 Eos # (Auto) 0.0 Baso # (Auto) 0.1 Abs Immat Gran (auto) 0.02 Absolute Neuts (auto) 5.2 Absolute Nucleated RBC 0.000 Nucleated RBC % (auto) 0.0 Sodium 145 Potassium 3.7 Chloride 110 H Carbon Dioxide 24 Anion Gap 15 BUN 11 Creatinine 0.72 Estim Creat Clear Calc 87.6 Estimated GFR > 60 Random Glucose 81 Calcium 8.9 Total Bilirubin 1.1 H AST 37 H ALT 23 Alkaline Phosphatase 77 Total Protein 6.7 Albumin 3.6 Urine Color [place] A Urine Appearance Turbid Urine pH 5.0 Ur Specific [place] >= 1.030 H Urine Protein 100 (2+) H Urine Glucose (UA) Negative Urine Ketones Trace Urine Blood Large (3+) H Urine Nitrite Positive H Ur Leukocyte Esterase Small (1+) H Urine RBC 6-10 H Urine WBC 11-20 H Ur Squamous Epith Cells >20 Calcium Oxalate Crystal Present Urine Bacteria 4+ Hyaline Casts 11-[address] scan - abdomen: Radiologist's impression: ITS Impressions Abdomen/Pelvis CT 04/10/24 08:26 IMPRESSION: 3 mm obstructing calculus proximal right ureter resulting in [id number] right hydronephrosis. Fleischner guidelines were followed. Electronically signed by: Gage Nava MD 04/10/2024 10:00 AM [facility] [place] Discharge Patient Disposition: Home, Self-Care Referrals: Jolanta Polo MD [Primary Care Provider] - 1 Week Discharge Medications: New oxycodone 5 mg tablet 5 mg PO .[id number] PRN (Reason: pain) Qty: 10 0RF Rx Instructions: Partial Fill upon patient request. naproxen 500 mg tablet 500 mg PO BID Qty: 20 0RF hydroxyzine pamoate [Vistaril] 25 mg capsule 25 mg PO BEDTIME Qty: 10 0RF Rx Instructions: Take at bedtime, as may cause some drowsiness No Action Wegovy 1 mg/0.5 mL pen injector 1 mg subcut SA multivitamin Tablet 1 tab PO DAILY Discharge Orders: Discharge Order (Routine); Ordered 04/10/24 Ordered By: Jennifer Hanna Diet: Advance to usual diet Activity on Discharge: As tolerated Activity Restrictions/Additional Instructions: Urology office will call regarding follow-up to have ureteral stent removed. Drink adequate fluids to flush urinary tract/kidneys. It is normal to see blood in the urine while ureteral stent is in place. Print Language: Somali
[2024-04-10] MEDS: Phenazopyridine HCL 200 MG TABLET PO (18:54)
[2024-04-18 20:13] LABS: Stone Source KIDNEY STONE
== END 2024-04-10 19:22 | disposition home or self-care (01) ==
LOC: HO.ED 12:48 → HO.SSS 17:09
PROVIDERS: Urology; Emergency Provider Emergency Medicine; PCP Family Medicine; Visit Provider Emergency Medicine
PROC: (CPT 52356; principal; 2024-04-10 17:00)
DX: N13.2 Hydronephrosis with renal and ureteral calculous obstruction (principal); R10.31 Right lower quadrant pain; R11.2 Nausea with vomiting, unspecified
CPT/HCPCS: 52356; 36415; 74176; 80053; 81001; 81003; 82365; 85025; 87086; 88300; 96361; 96374; 96375; 96376; 99285; C1726; C1758; C1769; C2617; J0690; J1100; J1171; J1885; J2003; J2250; J2270; J2405; J2704; J3010; J7120; Q9967

== ENCOUNTER → 2024-04-10 07:56 | Outpatient (BNV) | payer BC, SELFPAY | PROVIDERS: Emergency Provider Emergency Medicine; PCP Family Medicine; Visit Provider Radiology Diagnostic Radiology | DX: N13.2 Hydronephrosis with renal and ureteral calculous obstruction (principal) | CPT/HCPCS: 74176 ==

== ENCOUNTER → 2024-04-10 08:17 | Outpatient (BNV) | payer BC, SELFPAY | PROVIDERS: Emergency Provider Emergency Medicine; PCP Family Medicine; Visit Provider Urology | DX: N20.1 Calculus of ureter (principal); N13.2 Hydronephrosis with renal and ureteral calculous obstruction | CPT/HCPCS: 52356; 74420; 99284 ==

== ENCOUNTER 2024-04-13 07:40 | Outpatient (AMB) | payer BC, SELFPAY ==
--- OUTSIDE RECORDS SUMMARY | 2024-04-13 07:43 | XMS_ITS | Patient Health Record ---
[facility] Address [address] [place] [phone] Support Name Relationship Address Phone JOSE R Carter Guarantor Unknown Unavailable REASON FOR REFERRAL No Information PLAN OF TREATMENT No Information Insurance Providers Payer Name Payer Address Payer Phone Subscriber Number Group Number Insured Name Patient Relationship to Insured Coverage Start Date Coverage End Date ISABEL Palacios [id number] [place], [place] [id number] JOSE R Carter Self - patient is the insured
--- OUTSIDE RECORDS SUMMARY | 2024-04-13 07:43 | XMS_ITS | Clinical Summary ---
Author Organization [facility] Address [address] [place] [address] Care Team Providers Care Chocolate Packer Name Role Phone Ericka Can MD Primary Care Provider [phone] Surgical History Surgery Date Site/Laterality Comments CHOLECYSTECTOMY PROCEDURE: HISTORICAL CHOLECYSTECTOMY BARIATRIC SURGERY 10/05/2016 PROCEDURE: DE LAPS GSTRC RSTRICTIV PX LONGITUDINAL GASTRECTOMY; COMMENT: Sleeve Gastrectomy OTHER SURGICAL HISTORY 02/22/2015 Right PROCEDURE: DE ARTHRS KNE SURG W/MENISCECTOMY MED/LAT W/SHVG TOTAL KNEE ARTHROPLASTY 08/25/2015 Right PROCEDURE: HISTORICAL TOTAL KNEE REPLACE; COMMENT: [place] SECTION PROCEDURE: HISTORICAL ; COMMENT: x 2 [...] age to complete this topic Care Teams Chocolate Packer Relationship Specialty Start Date End Date Ericka Can MD [address] [place] [address] PCP - General 09/27/16
--- NOTE | 2024-04-13 08:12 | MHC.OFFVIS ---
Intake Visit Reasons: cysto stent removal Intake Note: Patient present or cysto stent removal Allergies penicillin V Allergy (Severe, Verified 04/13/24 08:15) Shortness of Breath codeine Allergy (Intermediate, Verified 04/13/24 08:15) Hives Penicillins [PENICILLINS] Allergy (Intermediate, Verified 04/13/24 08:15) HIVES HYDROCET Allergy (Intermediate, Uncoded 04/10/24 16:56) HIVES HPI Comments Details: 04/13/24--Here for right ureteral stent removal. 04/13/24--Monique is a 54-year-old female presenting with a ureteral stone. She presented to [facility] on 04/10/24. CTAP - notable for 3mm obstructing right proximal ureteral stone. Stone analysis pending. Here for stent removal. Plan 24 hr urine. 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 Son No problems noted. Daughter No problems noted. Social History Are you a primary critical care technician to a significant other at home: No Do you presently have visiting nurse or other home services: No Patient Tobacco Use Status: Never used Tobacco Review of Systems Const All systems reviewed & are unremarkable except as noted in HPI and below Reports no additional complaints Eyes Reports no additional complaints ENT Reports no additional complaints Card Reports no additional complaints Resp Reports no additional complaints GI Reports no additional complaints Reports as per HPI Musc Reports no additional complaints Skin/Breast Reports system reviewed and no additional complaints, except as documented Neuro Reports no additional complaints Psych Reports no additional complaints Endo Reports no additional complaints Lane/Lymph Reports no additional complaints Aller/Immun Reports no additional complaints Office Procedures Cystoscopy Consent Discussed risk and benefit or proposed procedure with the patient. Information consent for procedure given to the patient. Discussed technical aspects, risks, benefits and alternatives in full. Addressed all of the patient's questions and concerns regarding the procedure. The patient demonstrated knowledge and understanding. They wish to proceed with this procedure. Preparation The patient was prepped in the usual manner. A integration aide was present and in the room. Genitalia was prepped with betadine solution in a sterile manner. Lidocaine Jelly 2% was placed into the urethra and 16Fr flexible Olympus cystoscope was inserted into the meatus after adequate lubrication. Procedure Time out per protocol performed. Bladder Inspection Cystoscopy findings: mild edema ureteral orifice which is expected, distal end of ureteral stent visualized. The grasping forceps were used and the stent was removed without difficulty. 40813-Uprvfctdaw with stent removal DISPOSABLE SCOPE URO-G FLEXIBLE SCOPE Procedure code (CPT) selection complete Office Meds lidocaine HCl 2 % mucosal jelly in applicator Performing Provider: Jennifer Hanna MD [facility] Administered by: Ricci Cueto LPN on 04/13/24 08:36 Dose Route Admin Location Dispensed Lot Number Expiration Date [facility] Flight Attendant/Inflight Manager 10 mL intra-urethral 10 mL naproxen 500 mg tablet Performing Provider: Jennifer Hanna MD Performing Location: [facility] Administered by: Ricci Cueto LPN on 04/13/24 08:36 Dose Route Admin Location Dispensed Lot Number Expiration Date [place] Flight Attendant/Inflight Manager 500 mg PO 1 tab ciprofloxacin HCl 500 mg tablet Performing Provider: Jennifer Hanna MD Performing Location: [facility] Administered by: Ricci Cueto LPN on 04/13/24 08:36 Dose Route Admin Location Dispensed Lot Number Expiration Date [place] Flight Attendant/Inflight Manager 500 mg PO 1 tab Results AMB Urinalysis, Automated UA Leukoctes 125 [place]/uL Last Edit by Ivonne Rocha on 04/13/24 08:24 UA Nitrite Positive Last Edit by Ivonne Rocha on 04/13/24 08:24 UA Urobilinogen 0.2 mg/dL Last Edit by Ivonne Rocha on 04/13/24 08:24 UA Protein 300 mg/dL Last Edit by Ivonne Rocha on 04/13/24 08:24 UA pH 5.5 Last Edit by Ivonne Rocha on 04/13/24 08:24 UA Blood 200 Chi/uL Last Edit by Ivonne Rocha on 04/13/24 08:24 UA Specific [place] 1.020 Last Edit by Ivonne Rocha on 04/13/24 08:24 UA Ketone Positive Last Edit by Ivonne Rocha on 04/13/24 08:24 UA Bilirubin 1 mg/dL Last Edit by Ivonne Rocha on 04/13/24 08:24 UA Glucose 0 mg/dL Last Edit by Ivonne Rocha on 04/13/24 08:24 Results Reviewed Results Reviewed: Laboratory Last Values Urine pH (Auto) 5.5 04/13/24 08:12 Specific [place] (Auto) 1.020 04/13/24 08:12 Urine Protein (Auto) 300 mg/dL 04/13/24 08:12 Glucose (UA)(Auto) 0 mg/dL 04/13/24 08:12 Urine Ketones (Auto) Positive 04/13/24 08:12 Urine Blood (Auto) 200 Chi/uL 04/13/24 08:12 Urine Nitrite (Auto) Positive 04/13/24 08:12 Urine Bilirubin (Auto) 1 mg/dL 04/13/24 08:12 Urine Urobilinogen (Auto) 0.2 mg/dL 04/13/24 08:12 Leukocyte Esterase (Auto) 125 [place]/uL 04/13/24 08:12 Date of Service: 04/10/24 EXAMINATION: CT ABDOMEN AND PELVIS WITHOUT CONTRAST CLINICAL INFORMATION: Right flank pain. COMPARISON: None available. TECHNIQUE: Multidetector volumetric imaging was performed from the superior aspect of the liver through the pubic symphysis. Sagittal and coronal reformatted images were obtained on the technologist's workstation. This CT examination was performed using dose optimization techniques as appropriate, variously including the following: *Automated exposure control *Adjustment of mA and/or kV according to patient size (this includes techniques or standardized protocols for targeted exams where dose is matched to indication/reason for exam; i.e. extremities or head) *Use of iterative reconstruction technique. DLP: 536 mGy centimeter. FINDINGS: Inadequate evaluation of the intra-abdominal organs and vascular structures due to to lack of IV contrast. LUNG BASES: There are a few 2 mm noncalcified pulmonary nodule in the periphery of the right lower lung lobe. LIVER, GALLBLADDER, AND BILIARY TREE: Liver measures 17 cm.. No intrahepatic biliary ductal dilatation. There is a focal 2 cm low density in the gallbladder fossa. Status post cholecystectomy. Common bile duct measures 4 mm. PANCREAS: Punctate calcification in the head of the pancreas just anterior to the common bile duct. No main pancreatic ductal dilatation. No peripancreatic fluid collection. SPLEEN: 9 cm. ADRENAL GLANDS: No nodular lesions. KIDNEYS AND URETERS: Right kidney: There is a 3 mm obstructing calculus in the proximal right ureter.. There is mild to moderate dilatation of the pelvicalyceal system. Left kidney: No hydronephrosis. No nephrolithiasis. BLADDER: Fluid-filled nearly collapsed. GASTROINTESTINAL TRACT: Sutures along the lateral gastric wall. There is a hiatal hernia, small to moderate volume. Appendix is normal. Scattered diverticula in the sigmoid colon. Stool within nondilated large intestine. No intestinal obstruction pattern. No ascites. No pneumatosis intestinalis. No pneumoperitoneum. No fluid collections, peritoneal cavity. ABDOMINAL WALL: There are 2 lobulated small to moderate sized fat-containing umbilical and periumbilical hernias. LYMPH NODES: Nonspecific prominent mesenteric and retroperitoneum. VASCULAR: The calcified plaques distal abdominal aorta. No aneurysm in the abdominal aorta. PELVIC VISCERA: Inadequate evaluation. No gross masses. OSSEOUS STRUCTURES: Multilevel thoracolumbar spondylosis resulting in grade 1 retrolisthesis L4-5 and grade 1 anterolisthesis L5-S1. Castellvi type III sacralization. IMPRESSION: 3 mm obstructing calculus proximal right ureter resulting in [id number] right hydronephrosis. Assessment & Plan Assessment & Plan (1) Renal colic on right side: Code(s): N23 - Unspecified renal colic Category: Medical (2) Ureteric calculus: Code(s): N20.1 - Calculus of ureter Category: Medical Plan Discussion Notes I discussed the possibility of nephrolithiasis as the likely diagnosis following observed symptoms and imaging results confirming a ureteral stone. Treatment involved cystoscopy to remove the stone and collect fragments for lab analysis to assess composition and prevent future occurrences. I reviewed dietary adjustments and lifestyle changes, such as increased fluid intake and consuming food with citrate, to prevent recurrence. Consent for cystoscopy was obtained after a detailed discussion on procedural specifics, associated discomfort, potential complications, and benefits. I advised post-procedural discomfort management strategies and arranged a follow-up plan involving urinary analysis to guide dietary modifications. Plan A ureteral stone removal via cystoscopy is planned, correlating with imaging findings showing nephrolithiasis. The patient was counseled on the procedure steps, with an emphasis on extracting stone fragments for further analysis. To prevent recurrence, recommendations included increased hydration, incorporation of citrate-rich foods like jamin, and a 24-hour urine collection protocol for an in-depth analysis of stone formation indicators. Consent was secured following a discussion on procedural risks, expected discomfort, and strategies to alleviate post-removal symptoms. Future evaluations will focus on dietary and fluid intake adjustments based on the stone?s composition. Orders: Orders AMB Urinalysis Automated Today N20.1 - Calculus of ureter, N23 - Unspecified renal colic AMB Cystoscopy Today N20.1 - Calculus of ureter, N23 - Unspecified renal colic Patient Instructions: Patient Instructions - Increase daily fluid intake to up to 2 liters. - Incorporate citrus fruits, such as jamin, into your diet to increase citrate intake. - Utilize a heating pad or warm bath to manage any post-procedural discomfort. - Expect minor right-side spasms today; this is normal. - Complete a 24-hour urine collection as instructed for further analysis. - Follow any updates regarding lab results and follow-up plans discussed. The patient had an opportunity to ask questions regarding treatment plan. The patient expressed understanding and agreement with the above treatment plan. The patient is aware they should contact our office by phone for worsening of their current condition or the appearance of new symptoms. Compliance is encouraged with any medications and followup testing that is ordered. It is a privilege to be allowed the opportunity to participate in the urologic care of your patient. If you have any questions or concerns regarding treatment for the above conditions please do not hesitate to contact me. The office telephone contact is [phone]. This note is constructed in part using voice recognition software. While every effort has been made to ensure accuracy high risk ob errors may have been included. Yours sincerely, Jennifer Hanna MD Scribe Plan - Not visible on output: Patient was informed and verbally consented to the use of an ambient scribe for clinic note documentation during this visit. Coding Level of Care Code Est Pt Level 3 (74450) Diagnoses Renal colic on right side N23 Ureteric calculus N20.1 CPT Codes Cystoscopy - CPT: 12913-Wengebhsoe with stent removal ([id number])
== END 2024-04-13 09:27 | disposition home or self-care (01) ==
PROVIDERS: PCP Family Medicine; Visit Provider Urology
DX: N23 Unspecified renal colic (principal); N20.1 Calculus of ureter
CPT/HCPCS: 52310

== ENCOUNTER → 2024-04-13 07:40 | Outpatient (BNVA) | payer BC, SELFPAY | PROVIDERS: PCP Family Medicine; Visit Provider Urology | DX: Z46.6 Encounter for fitting and adjustment of urinary device (principal); N23 Unspecified renal colic; N20.1 Calculus of ureter | CPT/HCPCS: 52310; 81003 ==

== ENCOUNTER 2024-04-25 08:14 | Emergency (ER) | payer BC, SELFPAY ==
--- NOTE | ~2024-04-25 | US_ITS ---
EXAMINATION: US TRIPLEX UPPER EXTREMITY, LEFT CLINICAL INFORMATION: Pain and swelling, left upper extremity. COMPARISON: None available. TECHNIQUE: Color-flow triplex imaging with spectral analysis and compression Doppler was performed on the left upper extremity. FINDINGS: The left internal jugular, subclavian, and axillary veins are patent. Normal spectral waveforms. The imaged segment of the left brachiocephalic vein is patent. Spectral doppler waveforms are normal. The brachial, basilic, cephalic, radial, and ulnar veins are patent and compressible. There is a 4.2 x 3.1 x 2.6 cm lobulated anechoic abnormality without flow on color Doppler interrogation centered in the distal left subclavian vein. US/US venous duplex UE LT IMPRESSION: No acute deep venous thrombosis involving the left upper extremity. Negative for DVT. 4.2 x 3.1 x 2.6 cm fluid collection distal to the left subclavian vein.. Electronically signed by: Gage Nava MD 04/25/2024 01:19 PM EDT
--- NOTE | ~2024-04-25 | CT_ITS ---
EXAMINATION: CT ANGIOGRAM CHEST CLINICAL INFORMATION: Chest pain. History of DVT. Recent surgery. COMPARISON: July 10, 2014 is not available on PACS system. TECHNIQUE: Multiple axial images were obtained through the chest after the administration of 65 mL of Omnipaque 350 intravenous contrast. Extensive vascular post-processing including two-dimensional and three-dimensional reformatted images were created and reviewed on an independent workstation. SmartPrep technique This CT examination was performed using dose optimization techniques as appropriate, variously including the following: *Automated exposure control *Adjustment of mA and/or kV according to patient size (this includes techniques or standardized protocols for targeted exams where dose is matched to indication/reason for exam; i.e. extremities or head) *Use of iterative reconstruction technique. DLP: 354 mGy centimeter. FINDINGS: No intraluminal filling defects within the main pulmonary artery or its main branches. No aneurysm or dissection, thoracic aorta. Calcified plaques in the coronary arteries. There is prominence of the pulmonary veins. There is a subtle pulmonary mosaic pattern. No consolidation, pleural effusion or pneumothorax. 3 mm noncalcified pulmonary nodule abutting the pleura in the right lower lung lobe. No bronchiectasis. No honeycombing. Respiratory where is patent. No pericardial effusion. No lymphadenopathy, mediastinum or perihilar. Sutures along the lateral wall of the stomach and a small to moderate volume hiatal hernia. Status post cholecystectomy likely laparoscopic. Multilevel spondylosis, axial skeleton without acute fracture or gross listhesis. There is intraosseous hemangioma at T7 CT/CT angio chest PE protocol IMPRESSION: No acute pulmonary artery emboli. No aneurysm or dissection, thoracic aorta. Status post gastric sleeve with small to moderate volume hiatal hernia. Fleischner guidelines were followed. Electronically signed by: Gage Nava MD 04/25/2024 11:21 AM EDT
[2024-04-25 08:32] VITALS: BP 155/71; PULSE 76; RESP 16; TEMP 36.8; O2SAT 99; BMI 28.7
[2024-04-25 09:01] LABS: MANUAL DIFF FLAG NO
[2024-04-25 09:03] LABS: Basophils Absolute Auto 0.1 X10*3/uL (0.0-0.2); Eosinophils Absolute Auto 0.1 X10*3/uL (0.0-0.4); Eosinophils Percent Auto 1.2 % (0-4); Hematocrit 43.1 % (37.0-47.0); Hemoglobin 14.1 g/dl (12.0-16.0); Imm Gran Abs Auto 0.02 X10*3/uL (0.00-0.03); Imm Gran Pct Auto 0.3 % (0.0-0.4); Lymphocytes Absolute Auto 1.5 X10*3/uL (1.2-4.9); Lymphocytes Percent Auto 24.5 % (20-40); Mean Corpuscular HGB Conc 32.7 g/dl (31.0-35.0); Mean Corpuscular Hemoglobin 30.6 pg (27.0-33.0); Mean Corpuscular Volume 93.5 fL (80.0-98.0); Mean Platelet Volume 9.7 fL (9.4-12.3); Monocytes Absolute Auto 0.5 X10*3/uL (0.1-1.2); Monocytes Percent Auto 8.2 % (2-11); Neutrophils Absolute Auto 3.9 x10*3/uL (2.0-8.3); Neutrophils Percent Auto 64.8 % (45-73); Platelet Count 258 X10*3/uL (160-400); Red Blood Count 4.61 X10*6/uL (4.20-5.50); Red Cell Distribution Width 13.8 % (11.0-16.0)
[2024-04-25 09:09] LABS: Prothrombin Time 11.8 SEC (10.9-12.4)
[2024-04-25 09:18] LABS: Anion Gap 12 (12-20); Blood Urea Nitrogen 8 mg/dL (9-16); Calcium 9.7 mg/dL (8.4-10.2); Carbon Dioxide 22 mmol/L (22-29); Chloride 114 mmol/L (96-108); Creatinine Clr Calc Pharmacy 87.6; Estimated Glomerular Filt Rate > 60; Glucose Random 67 mg/dL (60-115); Potassium 3.3 mmol/L (3.3-5.1); Sodium 145 mmol/L (135-145)
--- NOTE | 2024-04-25 10:20 | ECG_ITS ---
Test Reason : L ARM PAIN Blood Pressure : */* mmHG Vent. Rate : 71 BPM Atrial Rate : 71 BPM P-R Int : 116 ms QRS Dur : 74 ms QT Int : 392 ms P-R-T Axes : 33 29 15 degrees QTcB Int : 425 ms Normal sinus rhythm Normal ECG When compared with ECG of 10-Jul-2014 08:49, No significant change was found Referred By: Keesha Pena Electronically Signed By: Andrea Carballo
[2024-04-25 10:51] LABS: Troponin-I High Sensitivity 3.6 ng/L (<3.5-17.0)
[2024-04-25] MEDS: iohexoL 350 MG/ML 100 ML INFUS..BTL IV (10:56)
--- NOTE | 2024-04-25 12:24 | ED_ITS ---
HPI - Extremity Problem General Chief complaint: Extremity Problem Stated complaint: Seen recently, L arm swelling from IV Time Seen by Provider: 04/25/24 09:01 Source: patient and RN notes reviewed Mode of arrival: ambulatory Limitations: no limitations History of Present Illness ED Provider: Keesha Pena PA-C HPI Narrative: This is a 54-year-old female who presents emergency department with complaints of left arm swelling, pain for the last 2 weeks. Patient was admitted to the hospital on April 10, 2024 due to renal colic on the right side. She had a stent placed and was discharged on April 13. She states that she had soreness to her left arm which she attributed to having the IV there however states that over the last several days she has noted increased pain, swelling, and feels as though she can feel her entire vein starting in her left AC distally. She does report a history of blood clots, she states that she had a blood clot after having a knee replacement many years ago, she states that she was on anticoagulation for 9 months and was discontinued. She is not currently on anticoagulation at this time. She does report that she has had intermittent chest discomfort, she does not have any chest pain at this time. Denies any shortness for breath. Denies any recent fevers, chills, abdominal pain, nausea, vomiting or diarrhea. MD Complaint: extremity pain and extremity swelling Onset (ago): week(s) Quality: aching Radiation: distal Relieving factors: movement Exacerbating factors: nothing Related Data Home Medications ?Medication ?Instructions ?Recorded ?Confirmed multivitamin 1 tab PO DAILY 04/10/24 04/10/24 semaglutide (weight loss) 1 mg/0.5 1 mg subcut SA 04/10/24 04/10/24 mL subcutaneous pen injector (Wegovy) Previous Rx's ?Medication ?Instructions ?Recorded hydroxyzine pamoate 25 mg capsule 25 mg PO BEDTIME Bladder spasms 04/10/24 (Vistaril) from ureteral stent #10 caps naproxen 500 mg tablet 500 mg PO BID For ureteral stent 04/10/24 pain #20 tabs oxycodone 5 mg tablet 5 mg PO .[id number] PRN pain #10 tabs 04/10/24 naproxen 500 mg tablet 500 mg PO BID 14 days #28 tabs 03/19/25 Allergies Allergy/AdvReac Type Severity Reaction Status Date / Time penicillin V Allergy Severe Shortness Verified 04/25/24 08:33 of Breath codeine Allergy Intermediate Hives Verified 04/25/24 08:33 Penicillins [PENICILLINS] Allergy Intermediate HIVES Verified 04/25/24 08:33 HYDROCET Allergy Intermediate HIVES Uncoded 04/10/24 16:56 Review of Systems 2 Review of Systems: Yes all other systems are reviewed and are negative Constitutional: Constitutional: Reports as per [facility] Past Medical History Medical History Deep vein blood clot of right lower extremity Surgical History H/O gastric bypass History of right knee surgery History of knee replacement procedure of right knee History of knee surgery History of section Hx of cholecystectomy Family History Family History Father Unknown family medical history Mother No problems noted. Son No problems noted. Daughter No problems noted. Social History Social History Are you a primary home health care social worker to a significant other at home: No Do you presently have visiting nurse or other home services: No Alcohol intake: current Alcohol intake frequency: holidays/special occasions only Patient Tobacco Use Status: Never used Tobacco Physical Exam 2 Vital Signs: Vital Signs: Last Vital Signs Temp 98 F 04/25/24 16:25 Pulse 78 04/25/24 16:25 Resp 18 04/25/24 16:25 BP 136/73 04/25/24 16:25 Pulse Ox 98 04/25/24 16:23 O2 Del Method Room Air 04/25/24 16:25 BMI result Body Mass Index 28.7 Const: General: cooperative, comfortable and no acute distress O rientation/consciousness: patient oriented x3 Limitations: no limitations HEENT: Head: Yes normal to inspection, Yes normocephalic and Yes atraumatic Ears: hearing grossly normal bilaterally General nose exam: Normal external nose present Face and sinus: Yes normal facial exam Mouth: Normal oral and palatal mucosa present, oropharynx normal and moist mucous membranes Throat: Yes posterior oropharynx normal Eyes: General: appearance normal, both eyes and all related structures E yelids: Yes eyelids normal Conjunctivae: conjunctivae normal Sclerae: s clerae normal Pupils: Equal, round and reactive pupils present EOM: EOMs intact bilaterally Neck: Neck: Yes normal visual inspection, Yes full ROM and Yes no lymphadenopathy Lymphatic: no lymphadenopathy noted Chest: Chest palpation & inspection: normal inspection of the chest Resp: Effort & Inspection: normal respiratory effort and able to speak in complete sentences Auscultation: clear to auscultation bilaterally, no crackles, no rales, no rhonchi and no wheezes Cardio: Rate: regular rate Rhythm: regular rhythm Heart sounds: S1 normal heart sound present and S2 normal heart sound present GI: Inspection: Yes normal to inspection Skin: General skin exam: no rashes or lesions noted Trauma: no lacerations or abrasions Wounds: no wounds Neuro: General: patient oriented x3 and moves all extremities Cranial nerves: Yes Equal, round and reactive pupils present Extrem: Other: Left upper extremity, at the left AC, there is a palpable vein that is able to be palpated distally into the mid forearm, no overlying erythema, warmth. Full ROM of the left elbow without difficulty. Left subclavian region, with no overlying erythema, edema, increased warmth. No swelling noted. Strong radial pulse. Distal sensation circulation intact. Left upper extremity is well perfused. Capillary refill less than 2 seconds. General: Yes normal to inspection Right upper extremity: normal to inspection Left upper extremity: normal to inspection Right lower extremity: normal to inspection Left lower extremity: normal to inspection Course Reevaluation(s) Reevaluation #1: CT of the chest revealing no acute pulmonary arterial emboli, no aneurysm or dissection. There are findings of a gastric sleeve with small to moderate volume hiatal hernia, as well as a 3 mm noncalcified pulmonary nodule. I discussed these findings with patient. Awaiting ultrasound of the left upper extremity. Reevaluation #2: Ultrasound returns, revealing a 4.2 x 3.1 x 2.6 cm fluid collection distal to the left subclavian vein.. Discussed findings with my attending physician, Dr. Saldaña. Patient re-examined, she has no obvious swelling or collection noted in this region. No surrounding erythema or warmth. Discussed with radiologist, Dr. Machado, who states that it was perhaps a seroma. Discussed findings with patient. Patient becomes tearful, stating that she had a poor experience during her visit last time she was here for her kidney stone, specifically when she was admitted, states that she did not have any issues in the emergency room. I discussed this with my attending physician, who recommended that I speak to the nursing cooler service supervisor, and will contact patients experience - who she met with for some time. Patient also seen by the gear cutter per her request. Time: 13:57 Reevaluation #3: Discussed overall workup with patient. Overall workup today was reassuring. Discussed strict return precautions. She understands and agrees with plan. Patient stable for discharge. Time: 16:36 Medications Administered Discontinued Medications Generic Name Dose Route Start Last Admin Trade Name Freq PRN Reason Stop Dose Admin Iohexol 100 ml 04/25/24 10:55 04/25/24 10:56 Iohexol 350 Mg/Ml 100 Ml Infus..Btl IV 04/25/24 10:56 65 ml ONCE ONE Administration Medical Decision Making Medical Decision Making [facility] Narrative: This is a 54-year-old female who presents emergency department with complaints of left arm swelling, pain for the last 2 weeks. On arrival, vital signs within normal limits. She is speaking full sentences under no acute distress. Patient reports that she has had swelling and pain to her left forearm since having an IV placed in her left AC region after her hospitalization that was approximately 2-3 weeks ago. Patient was seen and evaluated in the emergency room on April 10, 2024 where she was diagnosed with a right ureteral obstructing stone. She was then discharged on the same day. Patient reports that she has had increased swelling, and pain to her left forearm. She does have a history of DVT provoked after having a surgery. Patient does have palpable vein noted on her left AC, which extends down her left forearm. She does have tenderness in this region, she has no overlying erythema or warmth. No fluctuance. Differential diagnoses include superficial thrombophlebitis, DVT, PE, abscess, cellulitis. Given past medical history, will obtain labs, ultrasound of the left upper extremity, as well as CT of the chest. Patient reports that she has had slight ?twinges in my chest? which she has attributed to anxiety. She does not have any chest pain or shortness of breath at this time. Plan: Labs, EKG, US, CTA Differential Diagnosis Differential Diagnoses: The differential diagnosis associated with the presentation includes See above Admission/Observation Consideration of admission/observation: Escalation of care including admission/observation considered Lab Data MDM Lab Attestation statement: I reviewed the patient's lab results. No leukocytosis, stable H&H, chemistry with no significant electrolyte derangement, slight elevation in AST, nonspecific. No evidence of LEENA. Troponin 3.6, no need for repeat. 04/25/24 08:54 04/25/24 08:54 Labs: Lab Results 04/25/24 Range/Units 08:54 WBC 6.0 (4.8-10.8) X10*3/uL RBC 4.61 (4.20-5.50) X10*6/uL Hgb 14.1 (12.0-16.0) g/dl Hct 43.1 (37.0-47.0) % MCV 93.5 (80.0-98.0) fL MCH 30.6 (27.0-33.0) pg MCHC 32.7 (31.0-35.0) g/dl RDW 13.8 (11.0-16.0) % Plt Count 258 (160-400) X10*3/uL MPV 9.7 (9.4-12.3) fL Immature Gran % (Auto) 0.3 (0.0-0.4) % Neut % (Auto) 64.8 (45-73) % Lymph % (Auto) 24.5 (20-40) % Wirt % (Auto) 8.2 (2-11) % Eos % (Auto) 1.2 (0-4) % Baso % (Auto) 1.0 (0-2) % Lymph # (Auto) 1.5 (1.2-4.9) X10*3/uL Wirt # (Auto) 0.5 (0.1-1.2) X10*3/uL Eos # (Auto) 0.1 (0.0-0.4) X10*3/uL Baso # (Auto) 0.1 (0.0-0.2) X10*3/uL Abs Immat Gran (auto) 0.02 (0.00-0.03) X10*3/uL Absolute Neuts (auto) 3.9 (2.0-8.3) x10*3/uL Absolute Nucleated RBC 0.000 (0.0-0.012) X10*3/uL Nucleated RBC % (auto) 0.0 (0.0-0.2) /100WBC PT 11.8 (10.9-12.4) SEC INR 1.0 (0.9-1.1) Sodium 145 (135-145) mmol/L Potassium 3.3 (3.3-5.1) mmol/L Chloride 114 H (96-108) mmol/L Carbon Dioxide 22 (22-29) mmol/L Anion Gap 12 (12-20) BUN 8 L (9-16) mg/dL Creatinine 0.75 (0.5-1.4) mg/dL Estim Creat Clear Calc 87.6 Estimated GFR > 60 Random Glucose 67 (60-115) mg/dL Calcium 9.7 D (8.4-10.2) mg/dL Magnesium 1.6 (1.6-2.6) mg/dL Total Bilirubin 0.8 (0.0-1.0) mg/dL Direct Bilirubin 0.2 (0.0-0.5) mg/dL AST 37 H (5-31) U/L ALT 25 (0-31) U/L Alkaline Phosphatase 103 (39-117) U/L Troponin I High Sens 3.6 (<3.5-17.0) ng/L Total Protein 8.0 (6.5-8.0) g/dL Albumin 4.2 (3.5-5.0) g/dL Independent Interpretation I performed an independent interpretation of an: EKG Interpretation: Normal sinus rhythm at a ventricular rate of 71 beats per minute, QT QTC 392/425, no ST elevation or depression. Radiology Impression Discussion of test interpretation with radiology: I have reviewed the radiologist's reading. Radiologist Impression: CLINICAL INFORMATION: Pain and swelling, left upper extremity. COMPARISON: None available. TECHNIQUE: Color-flow triplex imaging with spectral analysis and compression Doppler was performed on the left upper extremity. FINDINGS: The left internal jugular, subclavian, and axillary veins are patent. Normal spectral waveforms. The imaged segment of the left brachiocephalic vein is patent. Spectral doppler waveforms are normal. The brachial, basilic, cephalic, radial, and ulnar veins are patent and compressible. There is a 4.2 x 3.1 x 2.6 cm lobulated anechoic abnormality without flow on color Doppler interrogation centered in the distal left subclavian vein. US/US venous duplex UE LT IMPRESSION: No acute deep venous thrombosis involving the left upper extremity. Negative for DVT. 4.2 x 3.1 x 2.6 cm fluid collection distal to the left subclavian vein.. Electronically signed by: Gage Nava MD 04/25/2024 01:19 PM EDT FINDINGS: No intraluminal filling defects within the main pulmonary artery or its main branches. No aneurysm or dissection, thoracic aorta. Calcified plaques in the coronary arteries. There is prominence of the pulmonary veins. There is a subtle pulmonary mosaic pattern. No consolidation, pleural effusion or pneumothorax. 3 mm noncalcified pulmonary nodule abutting the pleura in the right lower lung lobe. No bronchiectasis. No honeycombing. Respiratory where is patent. No pericardial effusion. No lymphadenopathy, mediastinum or perihilar. Sutures along the lateral wall of the stomach and a small to moderate volume hiatal hernia. Status post cholecystectomy likely laparoscopic. Multilevel spondylosis, axial skeleton without acute fracture or gross listhesis. There is intraosseous hemangioma at T7 CT/CT angio chest PE protocol IMPRESSION: No acute pulmonary artery emboli. No aneurysm or dissection, thoracic aorta. Status post gastric sleeve with small to moderate volume hiatal hernia. Fleischner guidelines were followed. Electronically signed by: Gage Nava MD 04/25/2024 11:21 AM EDT Dictated By: Gage Chambers MD Discharge Plan Discharge Clinical Impression: Superficial thrombophlebitis Patient Disposition: Home, Self-Care Instructions: Superficial Thrombophlebitis (ED) Additional Instructions: You were seen in the emergency department today due to left arm pain, swelling. Your blood work today was reassuring. Your EKG also was normal. We obtain a chest CT Which did not reveal a blood clot in your lungs. Your chest CT did reveal some incidental findings, you do have a small to moderate hiatal hernia, you also have a 3 mm pulmonary nodule. Please follow-up with your primary care physician regarding these findings. Your ultrasound revealed no DVT in your left upper extremity. You do have a fluid collection noted in your left upper arm, we spoke to the radiologist about this, and this is likely a seroma which is a normal fluid collection. Your symptoms are likely attributed to superficial thrombophlebitis. This is inflammation within your pain. This can cause discomfort, swelling. Please take NSAIDs, you may take ibuprofen 600 mg every 6 hours, or take naproxen 500 mg every 12 hours. Warm compresses, and Patel wrap can help with your symptoms. Watch for any new or worsening symptoms including but not limited to severe chest pain, shortness for breath, increased redness, swelling to your arm. If any of these occur, please seek emergent care. Follow-up with your primary care physician regarding this visit. Prescriptions: New naproxen 500 mg tablet 500 mg PO BID 14 Days Qty: 28 0RF No Action Wegovy 1 mg/0.5 mL pen injector 1 mg subcut SA multivitamin Tablet 1 tab PO DAILY oxycodone 5 mg tablet 5 mg PO .[id number] PRN (Reason: pain) Qty: 10 0RF Rx Instructions: Partial Fill upon patient request. naproxen 500 mg tablet 500 mg PO BID Qty: 20 0RF hydroxyzine pamoate [Vistaril] 25 mg capsule 25 mg PO BEDTIME Qty: 10 0RF Rx Instructions: Take at bedtime, as may cause some drowsiness Stand Alone Forms: Work/School Release Interventions: ED Discharge Assessment Last Done: 04/25/24 16:25 Discharge Date/Time: 04/25/24 16:26 Print Language: Hungarian
[2024-04-25 13:31] LABS: Alanine Aminotransferase 25 U/L (0-31); Albumin Level 4.2 g/dL (3.5-5.0); Aspartate Amino Transferase 37 U/L (5-31); Bilirubin Direct 0.2 mg/dL (0.0-0.5); Bilirubin Total 0.8 mg/dL (0.0-1.0); Magnesium 1.6 mg/dL (1.6-2.6)
[2024-04-25 14:17] LABS: Alkaline Phosphatase 103 U/L (39-117)
[2024-04-25 14:52] VITALS: BP 159/79; PULSE 80; RESP 15; TEMP 36.8; O2SAT 97
[2024-04-25 16:23] VITALS: BP 136/73; PULSE 78; RESP 18; O2SAT 98
[2024-04-25 16:25] VITALS: BP 136/73; PULSE 78; RESP 18; TEMP 36.6
== END 2024-04-25 16:26 | disposition home or self-care (01) ==
PROVIDERS: Physician Assistant Medical; Emergency Provider Emergency Medicine; PCP Family Medicine
DX: I80.8 Phlebitis and thrombophlebitis of other sites (principal); R07.89 Other chest pain; M79.602 Pain in left arm; R60.0 Localized edema; F41.9 Anxiety disorder, unspecified; Z86.718 Personal history of other venous thrombosis and embolism; Z79.01 Long term (current) use of anticoagulants; Z98.84 Bariatric surgery status; Z79.899 Other long term (current) drug therapy
CPT/HCPCS: 36415; 71275; 80048; 80076; 83735; 84484; 85025; 85610; 93005; 93971; 99284; Q9967

== ENCOUNTER → 2024-04-25 10:20 | Outpatient (BNV) | payer BC, SELFPAY | PROVIDERS: PCP Family Medicine; Visit Provider Radiology Diagnostic Radiology | DX: R07.9 Chest pain, unspecified (principal); M79.622 Pain in left upper arm | CPT/HCPCS: 71275; 93971 ==

== ENCOUNTER → 2024-04-25 10:20 | Outpatient (BNV) | payer BC, SELFPAY | PROVIDERS: Emergency Provider Emergency Medicine; PCP Family Medicine; Visit Provider Internal Medicine Cardiovascular Disease | DX: M79.602 Pain in left arm (principal) | CPT/HCPCS: 93010 ==